=== PATIENT | male | born 2000 | race Caucasian/White ===

== ENCOUNTER 2018-05-03 22:30 | Emergency (ER) | payer OTHER ==
[~2018-05-03] VITALS: Ht 185.4 cm; Wt 81.7 kg
[2018-05-03] MEDS ORDERED: ZYRTEC10 MG PO (22:48)
[2018-05-03] MEDS ORDERED: ALLEGRA ALLERG180 MG PO (22:48)
== END 2018-05-04 01:27 | disposition home or self-care (01) ==
LOC: ED 22:30
DX: J45.909 Unspecified asthma, uncomplicated (principal); Z79.899 Other long term (current) drug therapy
CPT/HCPCS: 94640; 99282

== ENCOUNTER 2024-08-23 18:49 | Emergency (ER) | payer BC ==
[~2024-08-23] VITALS: Ht 185.4 cm; Wt 78.8 kg
[~2024-08-23 18:49] MED LIST: ALLEGRA ALLERG180 MG PO; ZYRTEC10 MG PO
[2024-08-23 19:34] LABS: BASOPHILS 0.8 % (0-2); EOSINOPHILS 0.8 % (0-6); HEMATOCRIT 50.4 % (35.0-50.0); HEMOGLOBIN 17.3 g/dL (12.0-18.0); LYMPHOCYTES 31.9 % (24-44); MCH 29.6 (27-36); MCHC 34.2 g/dl (30-36); MCV 86.6 fl (81-99); MONOCYTES 4.9 % (0-12); NEUTROPHILS 61.6 % (39-80); PLATELET COUNT 252 K/uL (140-440); RBC 5.83 M/ul (4.3-5.7); RDW 13.3 (10.5-15.0)
[2024-08-23 19:52] LABS: ALBUMIN 4.6 g/dL (3.4-5.0); ALBUMIN/GLOBULIN RATIO 1.28 (1.1-2.4); BILIRUBIN, TOTAL 1.3 ng/dL (0.2-1.0); BUN/CREATININE RATIO 15.74 (6.0-28.6); CALCIUM 9.9 mg/dL (8.5-10.1); CREATININE, SERUM 1.27 mg/dL (0.70-1.30); PROTEIN, TOTAL 8.2 g/dL (6.4-8.2)
[2024-08-23 21:00] VITALS: BP 127/81
== END 2024-08-23 21:00 | disposition home or self-care (01) ==
LOC: ED 18:49
PROVIDERS: Internal Medicine
DX: K62.5 Hemorrhage of anus and rectum (principal); Z79.899 Other long term (current) drug therapy
CPT/HCPCS: 36415; 80053; 83690; 85025; 99283

== ENCOUNTER 2025-01-12 10:07 | Day surgery (SDC) | payer BC ==
[~2025-01-12] VITALS: Ht 185.4 cm; Wt 77.1 kg
[~2025-01-12 10:07] MED LIST changes: +HYDROXYZINE HCL10 MG PO; +IBLOOD GLUCOSE TEST STRIP 1 EA TEST VI PRN; +LACTATED RINGER'S 1,000 ML IV SCH; +LIDOCAINE HCL 1% 5 ML SDV INJ ONE; +MIDAZOLAM HCL 5 MG/5 ML VIAL IV PRN; +SERTRALINE HCL25 MG PO; +fentaNYL citrate 100 MCG/2 ML VIAL IV PRN
[2025-01-12 10:30] VITALS: BP 137/76
[2025-01-12] MEDS ORDERED: fentaNYL citrate 100 MCG/2 ML VIAL ONE (12:40)
[2025-01-12] MEDS ORDERED: MIDAZOLAM HCL 5 MG/5 ML VIAL ONE (12:40)
--- NOTE | 2025-01-12 13:41 | NUR ---
01/12/25 1341 Ermelinda Woods 1330-PT ARRIVES TO PACU RESTING SEMI FOWLERS, PT A+OX4, PT DENIES PAIN OR NAUSEA, PT ENCOURAGED TO PASS GAS. VSS ON 3L VIA NC. 1335-PT TITRATED TO RA, VS REMAIN STABLE.
[2025-01-12 14:04] VITALS: BP 124/57
[2025-01-14 13:50] LABS: DEAMIDATED GLIADIN PEPTIDE,IGA <0.72 FLU (0.00-4.99); TISSUE TRANSGLUTAMINAS TTG,IGA <1.02 FLU (0.00-4.99)
[2025-01-14 18:50] LABS: DEAMIDATED GLIADIN PEPTIDE,IGG <0.56 FLU (0.00-4.99); TISSUE TRANSGLUTAMINASE AB,IGG <0.82 FLU (0.00-4.99)
--- NOTE | 2025-01-16 12:42 | OR ---
[facility] [address] [place], [place] [address] Signed DATE OF OPERATION: 01/12/2025 SURGEON: Willi Garnica MD PREOPERATIVE DIAGNOSIS: Persistent longstanding diarrhea with weight loss (recently improving). POSTOPERATIVE DIAGNOSIS: Normal-appearing colon and terminal ileum. PROCEDURE: Total colonoscopy to cecum with intubation of ileum and biopsy of ileum, cecum, transverse colon, and rectum. ANESTHESIA: Intravenous sedation; fentanyl 200 mcg and Versed 10 mg. INDICATION: This 24-year-old white man is from [place], [place] and a patient of Dr. Rajinder Arana as well as JONATHAN Pulido. The patient has had significant diarrhea and rectal bleeding back in July, now discontinued. He was seen at [facility] emergency room for this, thought to have "hemorrhoids." He has had diarrhea as well, which has been significant and persistent. He has had a 10-pound weight loss over the preceding eight months. He has no family history of inflammatory bowel disease or colon cancer. 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 He is admitted at this time to undergo colonoscopy and ileoscopy if possible to assess for possible inflammatory bowel disease. The risk of bleeding, infection, perforation, and so forth were reviewed with him. He understands and wished to proceed. FINDINGS: The prep was quite excellent. Complete colonoscopy was undertaken of the cecum. Intubation of the ileum was accomplished as well with biopsies of the ileum also. There was no abnormality of the ileum, colon, or rectum in any way. DESCRIPTION OF PROCEDURE: The patient was brought to the endoscopy suite, placed in lateral decubitus position and given intravenous sedation to the point of slurred speech and nystagmus with full cardiopulmonary monitoring. Digital rectal examination was normal. Electronically Signed By: WILLI GARNICA MD 01/16/25 1242 PATIENT NAME: MARIPOSA MOREIRA OPERATIVE REPORT DATE OF : [birth year] REPORT #: [id number] PHYSICIAN: WILLI GARNICA MD PCP: LUDWIG ARANA MD REPORT IS CONFIDENTIAL AND NOT TO BE RELEASED WITHOUT AUTHORIZATION [facility] [address] [place], [place] [address] Signed An Olympus video colonoscope was passed in the rectum and manipulated throughout the colon noting a perfect bowel prep. Scope was ultimately advanced to the cecum. Additional sedation was given as needed. Ultimately, full intubation of the cecum was accomplished with good visualization of the ileocecal valve and appendiceal orifice. The terminal ileum was a challenge to enter, but ultimately it was accomplished without question, past several cm into it. Terminal ileum appeared normal without sign of ulceration, neoplasm, stricture, or other abnormality. Biopsies were taken of the terminal ileum. Scope was then withdrawn to the cecum where biopsies were taken there. Careful withdrawal of scope showed no sign of abnormality upon withdrawal of the scope. Biopsy was taken of the rectum also to assess for occult colitis as well as biopsy of the transverse colon. Scope was removed. The patient was taken to the recovery room in good condition. CONCLUDING DIAGNOSIS: No evidence of colitis or ileitis in any way. No sign of active hemorrhoidal disease. PLAN: We will treat empirically with Flagyl 250 mg p.o. t.i.d. x10 days. I will additionally assess his pathology reports to assure there is no sign of occult colitis (lymphocytic colitis, etc.) Additionally, we will obtain today a celiac panel to assess. There is no evidence of gluten enteropathy. We will see patient back in 4 to 6 weeks if he is still having diarrhea, if he is not and it has resolved, expectant management would be appropriate. Willi Garnica MD /ANN MARIEL /[id number] cc: SALOMÓN Pulido MD Electronically Signed By: WILLI GARNICA MD 01/16/25 1242 PATIENT NAME: MARIPOSA MOREIRA FOREMAN OPERATIVE REPORT DATE OF : [birth year] REPORT #: [id number] PHYSICIAN: WILLI GARNICA MD PCP: LUDWIG ARANA MD REPORT IS CONFIDENTIAL AND NOT TO BE RELEASED WITHOUT AUTHORIZATION [facility] [address] [place] [id number] Signed Copies: LUDWIG ARANA MD ~ Electronically Signed By: WILLI GARNICA MD 01/16/25 1242 PATIENT NAME: MARIPOSA MOREIRA OPERATIVE REPORT DATE OF : [birth year] REPORT #: [id number] PHYSICIAN: WILLI GARNICA MD PCP: LUDWIG ARANA MD REPORT IS CONFIDENTIAL AND NOT TO BE RELEASED WITHOUT AUTHORIZATION
--- NOTE | 2025-01-17 17:43 | PATH ---
[facility] [address] [place], [place] [address] Signed SPECIMEN(S): A TERMINAL ILEUM BIOPSY SPECIMEN(S): B CECUM COLON BIOPSY SPECIMEN(S): C TRANSVERSE COLON BIOPSY SPECIMEN(S): D DESCENDING COLON BIOPSY SPECIMEN(S): E RECTUM BIOPSY SPECIMEN SOURCE: A. TERMINAL ILEUM BIOPSY B. CECUM COLON BIOPSY C. TRANSVERSE COLON BIOPSY D. DESCENDING COLON BIOPSY E. RECTUM BIOPSY CLINICAL HISTORY: Pre: Rectal bleeding. Post: Normal colon and ileum FINAL PATHOLOGIC DIAGNOSIS: A. Terminal ileum, biopsy: - Terminal ileum mucosa with normal villous architecture. - Peyer's patches are present. - Negative for acute, chronic, and granulomatous inflammation. - Negative for dysplasia and malignancy. B. Cecum, biopsy: - Colonic mucosa with normal glandular architecture. - Negative for acute, chronic, and granulomatous inflammation. - Subepithelial collagen layer is normal in thickness. - Negative for dysplasia and malignancy. C. Transverse colon, biopsy: - Colonic mucosa with normal glandular architecture. - Negative for acute, chronic, and granulomatous inflammation. - Subepithelial collagen layer is normal in thickness. - Negative for dysplasia and malignancy. D. Descending colon, biopsy: - Colonic mucosa with normal glandular architecture. - Negative for acute, chronic, and granulomatous inflammation. - Subepithelial collagen layer is normal in thickness. - Negative for dysplasia and malignancy. E. Rectum, biopsy: - Rectal mucosa with normal glandular architecture. - Negative for acute, chronic, and granulomatous inflammation. PATIENT NAME: MARIPOSA MOREIRA PATHOLOGY DATE OF : [birth year] REPORT #: [id number] PHYSICIAN: [facility] PATHOLOGY PCP: LUDWIG SAVAGE MD REPORT IS CONFIDENTIAL AND NOT TO BE RELEASED WITHOUT AUTHORIZATION [facility] [address] [place], [place] [address] Signed - Subepithelial collagen layer is normal in thickness. - Negative for dysplasia and malignancy. SDL MICROSCOPIC EXAMINATION: Histologic sections of all submitted blocks are examined by light microscopy. These findings, together with the gross examination, support the pathologic diagnosis. GROSS DESCRIPTION: A. The specimen, labeled and designated "Yahir, iLnh, terminal ileum biopsy," is received in formalin and consists of seven price soft tissue fragments, ranging from 0.2-0.4 cm. Entirely submitted in (A1). B. The specimen, labeled and designated "Yahir, Linh, cecum colon biopsy," is received in formalin and consists of three price soft tissue fragments, ranging from 0.2-0.4 cm. Entirely submitted in (B1). C. The specimen, labeled and designated "Yahir, Linh, transverse colon biopsy," is received in formalin and consists of two price soft tissue fragments, ranging from 0.3-0.8 cm. Entirely submitted in (C1). D. The specimen, labeled and designated "Yahir, Linh, descending colon biopsy," is received in formalin and consists of three price soft tissue fragments, ranging from 0.2-0.3 cm. Entirely submitted in (D1). E. The specimen, labeled and designated "Yahir, A, rectum biopsy," is received in formalin and consists of two price soft tissue fragments, ranging from 0.2-0.3 cm. Entirely submitted in (E1). AB (under the direct supervision of a pathologist) The Gross Description was prepared using a voice recognition system. The report was reviewed for accuracy; however, sound-alike word errors, addition and/or deletions may occur. If there are any questions about this report, please contact Client Services. ADDITIONAL NOTES: Immunohistochemical and/or in situ hybridization studies if performed in this case included appropriate positive controls that reacted as expected. This test was developed and its performance characteristics determined by [email or web address]. It has not been cleared or approved by the U.S. Food and Drug Administration. The FDA has determined that such clearance or approval is not PATIENT NAME: MARIPOSA MOREIRA PATHOLOGY DATE OF : [birth year] REPORT #: [id number] PHYSICIAN: [facility] PCP: LUDWIG SAVAGE MD REPORT IS CONFIDENTIAL AND NOT TO BE RELEASED WITHOUT AUTHORIZATION [facility] [address] [place] [id number] Signed necessary. This test is used for clinical purposes. It should not be regarded as investigational or for research. [email or web address] is certified under the Clinical Laboratory Improvement Amendments of 1988 (CLIA) as qualified to perform high complexity clinical laboratory testing. PERFORMING LABORATORY: Technical component was performed by [email or web address], [address] [place] [id number] (CLIA# [id number]). Professional interpretation was performed by [facility], [address] [place] [id number] (CLIA#: [id number]). Diagnostician: Cira Garcia MD Pathologist Electronically Signed 01/17/2025 Copies: ~ PATIENT NAME: MARIPOSA MOREIRA PATHOLOGY DATE OF : [birth year] REPORT #: [id number] PHYSICIAN: CONCHIS MEDEL PCP: LUDWIG SAVAGE MD REPORT IS CONFIDENTIAL AND NOT TO BE RELEASED WITHOUT AUTHORIZATION
== END 2025-01-12 14:15 | disposition home or self-care (01) ==
LOC: DS 10:07
PROVIDERS: ATTEND Surgery
PROC: 0DBL8ZX Excision of Transverse Colon, Via Natural or Artificial Opening Endoscopic, Diagnostic (ICD-10-PCS; 2025-01-12)
PROC: 0DBP8ZX Excision of Rectum, Via Natural or Artificial Opening Endoscopic, Diagnostic (ICD-10-PCS; 2025-01-12)
PROC: 0DBB8ZX Excision of Ileum, Via Natural or Artificial Opening Endoscopic, Diagnostic (ICD-10-PCS; 2025-01-12)
PROC: 0DBH8ZX Excision of Cecum, Via Natural or Artificial Opening Endoscopic, Diagnostic (ICD-10-PCS; principal; 2025-01-12 11:00)
DX: K52.9 Noninfective gastroenteritis and colitis, unspecified (principal); R63.4 Abnormal weight loss; K62.5 Hemorrhage of anus and rectum
CPT/HCPCS: 36415; 99153; G0500; J2250; J3010; J7121